=== PATIENT | female | born 1995 | race Caucasian/White ===

== ENCOUNTER 2016-10-05 17:15 | Emergency (ER) | payer SELFPAY ==
[2016-10-05] MEDS ORDERED: Mupirocin Ointment 2% 22 gm Tube TOPICAL ONE (17:30)
--- NOTE | 2016-10-05 17:38 | PDOC ---
Skin Rash/Insect/Abscess HPI - General Chief Complaint: Integumentary Stated Complaint: RECENT DOUBLE LOWER LIP PIERCING WITH INFECTION Date Seen by Provider: 10/05/16 Time Seen by Provider: 17:25 Source: POSITIVE: Patient Exam Limitations: POSITIVE: No limitations Nurse's Notes Reviewed & Considered: Yes - History of Present Illness Initial Comments: The patient is a 21-year-old female who presents to the emergency department with infected piercings. She states that she got her lower lip pierced 2 about a week ago. She was using an antibacterial hand soap. The area around the piercing started to get red and crusty the past couple of days. She denies any fevers or chills or systemic symptoms. She has not had any drainage on the inside of her lip. Have you received a tetanus shot in the past 10 years?: Yes - Patient Home Medications Home Medications: Home Medications Cephalexin [Keflex] 500 mg PO Q8H #15 cap 10/05/16 - Patient Allergies Allergies/Adverse Reactions: Allergies Allergy/AdvReac Type Severity Reaction Status Date / Time No Known Allergies Allergy Verified 10/05/16 17:22 Past Medical History - heen HEENT History: Denies History Cardiovascular History: Denies History Respiratory History: Denies History Gastrointestinal History: Denies History Genitourinary History: Denies History Endocrine History: Denies History Musculoskeletal History: Denies History Prosthesis or Implant: No Neurological History: Traumatic Brain Injury, Other (please comment) Additional Neurological History: SPINA BIFIDA Blood Disorders: Denies History Psychiatric History: Other (please comment) Additional Psychiatric History: INSOMNIA History of Sexually Transmitted Diseases: No Cancer History: Denies History History of MDRO: No History of Other Communicable Diseases: No Alcohol Use: Rarely Substance Use Type: None Previous Surgical History: Yes Type / Date of Surgery: RIGHT CAROTID ARTERY SURGERY Anesthesia Reactions: No Malignant Hyperthermia: No Significant Family History: No pertinent family hx Past Medical History Reviewed: Reviewed - No Changes ROS - Limitations ROS Limitations: No Limitations Constitution: DENIES: Chills, Fever Skin Rash/Insect/Abscess Exam - General Appearance General Appearance: REPORTS: Alert, Cooperative, No Acute Distress - HEENT HEENT: POSITIVE: Other (Examination of the lower lip reveals 2 piercings through the full-thickness of the lip, on the external surface there is approximately a 1 cm area of erythema and crusting around each piercing, the internal surface of the lip shows no swelling or drainage in the lip itself does not appear overly swollen) - Neck Neck: REPORTS: Trachea Midline. DENIES: Lymphadenopathy Skin Rash/Abscess Progress - Patient's Progress MDM / ED Course: Currently the infections around each piercing appear to be more superficial, more comparable to an impetigo. She was started on Bactroban ointment 2-3 times a day as well as Keflex 500 mg 3 times a day for 5 days. She was advised that if the infection worsens or does not improve in the next 24-48 hours that the piercings will need to be removed. She was advised return to the emergency room she develops increased pain or swelling, fevers or chills, any worsening or change in symptoms. She will follow-up with primary care if no improvement in 3-5 days. - Consult Counseled: POSITIVE: Patient, RE: DX, RE: Need for F/U Patient Care Time - Estimated PCT Patient Care Time (In Minutes): 10 Vital Signs - VS Reviewed Vital Signs Reviewed: Yes Discharge Clinical Impression: Impetigo Discharge Disposition: Discharged to Home Condition: Stable Prescriptions / Orders: Cephalexin [Keflex] 500 mg PO Q8H #15 cap Patient Instructions Given at Discharge: Impetigo (ED) Additional Instructions: There is a staph infection at the site of both piercings on the lower lip. Apply Bactroban ointment 2-3 times a day for the next 5-7 days. In addition your been prescribed oral antibiotics which is Keflex 500 mg 3 times a day for 5 days. If the infection does not start improving in the next 1 or 2 days then the piercings will likely need to be removed until the sites heal. Return to the emergency room if increased swelling, fevers or chills, any worsening or change in symptoms. Follow-up if no improvement in 3-5 days. Follow Up With: NONE,NONE [Primary Care Provider] -
[2016-10-05 17:46] VITALS: RESP 19; TEMP 98.1
== END 2016-10-05 18:04 | disposition home or self-care (01) ==
LOC: ER 17:15
DX: L01.00 Impetigo, unspecified (principal); B95.7 Other staphylococcus as the cause of diseases classified elsewhere
CPT/HCPCS: 99282